=== PATIENT | female | born 1955 | race African-American/Black ===

== ENCOUNTER 2020-01-09 09:35 | Inpatient (IN) | payer MEDICARE, MEDICAID ==
[~2020-01-09] VITALS: Ht 165.1 cm; Wt 69.4 kg
[2020-01-09] MEDS ORDERED: GUAIFENESIN-DM 200MG-20MG/10ML UDC PO ONE (11:15)
[2020-01-09] MEDS ORDERED: SODIUM CHLORIDE 0.9% 1,000 ML IV ONE (11:15)
[2020-01-09 11:45] LABS: BASOPHILS % 0.1 % (0.0-2.0); EOSINOPHILS % 0.2 % (0.0-5.0); HEMOGLOBIN. 11.3 g/dL (12.0-16.0); MEAN CORPUSCULAR HEMOGLOBIN 21.5 pg (28.0-32.0); MEAN CORPUSCULAR VOLUME 66.7 fL (81.0-99.0); MEAN PLATELET VOLUME 8.9 fl (7.4-10.4); MONOCYTES % 7.2 % (2.0-8.0); NEUTROPHILS % 81.5 % (40.0-76.0); PLATELET 393 x1000/uL (130-400); RED BLOOD CELL COUNT 5.24 mill/uL (4.2-5.4); RED CELL DISTRIBUTION WIDTH 19.8 % (11.6-14.6)
[2020-01-09 12:26] LABS: CHLORIDE 90 mEq/L (98-107)
[2020-01-09 12:47] LABS: PLATELET ESTIMATE NORMAL
[2020-01-09] MEDS: SODIUM CHLORIDE 0.9% 1,000 ML IV SCH ×2 (14:20→23:47)
[2020-01-09] MEDS ORDERED: ONDANSETRON HCL 4MG/2ML INJ IV PRN (14:30)
[2020-01-09] MEDS ORDERED: POTASSIUM CHLORIDE 20MEQ TABLET SR PO NR (14:30)
[2020-01-09 14:32] LABS: CLARITY URINE CLEAR (CLEAR); COLOR URINE YELLOW (YELLOW); KETONES URINE 1+ (NEGATIVE); LEUKOCYTE ESTERASE URINE 2+ (NEGATIVE); NITRITE URINE NEGATIVE (NEGATIVE); OCCULT BLOOD URINE NEGATIVE (NEGATIVE); PH URINE 5.5 (4.5-8.0); PROTEIN URINE TRACE (NEGATIVE)
[2020-01-09] MEDS ORDERED: AZITHROMYCIN 500 MG in DEXT 5% WATER 250 ML IV NR (14:45)
[2020-01-09] MEDS ORDERED: IPRATROPIUM/ALBUTEROL 0.5-3(2.5)MG/3ML NEB HHN PRN (17:00)
[2020-01-09] MEDS: ACETAMINOPHEN 325MG TABLET PO PRN (18:44)
[2020-01-09 21:30] VITALS: BP 130/74
[2020-01-09] MEDS: GUAIFENESIN-DM 200MG-20MG/10ML UDC PO PRN (23:46)
[2020-01-09] MEDS: ASCORBIC ACID 500 MG TABLET PO SCH (23:46)
[2020-01-09] MEDS: FLUTICASONE PROPIONATE 50MCG/SPRAY BOTTLE BOTHNSTRLS SCH (23:47)
[2020-01-09] MEDS: HEPARIN 5000 UNITS/ML VIAL SUBCUT SCH (23:48)
[2020-01-10] VITALS: BP 125/65
[2020-01-10] MEDS: HYDROXYCHLOROQUINE SULFATE 200MG TABLET PO SCH ×3 (00:13→23:22)
[2020-01-10 04:00] VITALS: BP 123/66
[2020-01-10] MEDS: GUAIFENESIN-DM 200MG-20MG/10ML UDC PO PRN ×2 (04:02→10:11)
[2020-01-10 08:00] VITALS: BP 122/63
[2020-01-10] MEDS ORDERED: AZITHROMYCIN 250 MG in DEXT 5% WATER 250 ML IV SCH (09:00)
[2020-01-10] MEDS ORDERED: CEFTRIAXONE 1 G PREMIX 50 ML IV SCH (09:00)
[2020-01-10 09:27] LABS: BASOPHILS % 0.6 % (0.0-2.0); EOSINOPHILS % 0.8 % (0.0-5.0); HEMATOCRIT. 27.7 % (36.0-48.0); HEMOGLOBIN. 8.9 g/dL (12.0-16.0); LYMPHOCYTES % 10.7 % (20.0-50.0); MEAN CORPUSCULAR HEMOGLOBIN 21.3 pg (28.0-32.0); MEAN CORPUSCULAR VOLUME 66.2 fL (81.0-99.0); MEAN PLATELET VOLUME 8.1 fl (7.4-10.4); MONOCYTES % 7.2 % (2.0-8.0); NEUTROPHILS % 80.7 % (40.0-76.0); PLATELET 366 x1000/uL (130-400); RED BLOOD CELL COUNT 4.19 mill/uL (4.2-5.4); RED CELL DISTRIBUTION WIDTH 19.6 % (11.6-14.6)
[2020-01-10 09:43] LABS: CHLORIDE 98 mEq/L (98-107)
[2020-01-10] MEDS: ZINC SULFATE 220 MG ( 50 ) CAPSULE PO SCH (10:10)
[2020-01-10] MEDS: ASCORBIC ACID 500 MG TABLET PO SCH ×2 (10:10→23:21)
[2020-01-10] MEDS: HEPARIN 5000 UNITS/ML VIAL SUBCUT SCH ×2 (10:10→23:22)
[2020-01-10 12:00] VITALS: BP 130/77
[2020-01-10] MEDS: BENZONATATE 100MG CAPSULE PO SCH ×2 (14:16→23:21)
[2020-01-10] MEDS: SODIUM CHLORIDE 0.9% 1,000 ML IV SCH (15:20)
[2020-01-10 16:00] VITALS: BP 96/68
[2020-01-10 20:00] VITALS: BP 130/76
[2020-01-10] MEDS: FLUTICASONE PROPIONATE 50MCG/SPRAY BOTTLE BOTHNSTRLS SCH (21:00)
[2020-01-10] MEDS: GUAIFENESIN/DM 600MG/30MG ER TAB 12HR PO PRN (23:32)
[2020-01-11] VITALS (7 sets, daily range): BP systolic 107–146; BP diastolic 63–87
[2020-01-11] MEDS: BENZONATATE 100MG CAPSULE PO SCH ×3 (05:33→21:13)
[2020-01-11] MEDS: FLUTICASONE PROPIONATE 50MCG/SPRAY BOTTLE BOTHNSTRLS SCH ×2 (09:00→21:00)
[2020-01-11] MEDS: AZITHROMYCIN 250 MG TABLET PO SCH (10:55)
[2020-01-11] MEDS: HYDROXYCHLOROQUINE SULFATE 200MG TABLET PO SCH ×2 (10:55→21:13)
[2020-01-11] MEDS: ASCORBIC ACID 500 MG TABLET PO SCH ×2 (10:55→21:13)
[2020-01-11] MEDS: HEPARIN 5000 UNITS/ML VIAL SUBCUT SCH ×2 (10:56→21:00)
[2020-01-11] MEDS: ZINC SULFATE 220 MG ( 50 ) CAPSULE PO SCH (10:56)
[2020-01-11] MEDS: GUAIFENESIN/DM 600MG/30MG ER TAB 12HR PO PRN (11:43)
[2020-01-11] MEDS: CEFTRIAXONE 1 G PREMIX 50 ML IV SCH (11:48)
[2020-01-11 12:10] LABS: EOSINOPHILS % 1.3 % (0.0-5.0); HEMATOCRIT. 26.8 % (36.0-48.0); HEMOGLOBIN. 8.6 g/dL (12.0-16.0); LYMPHOCYTES % 14.5 % (20.0-50.0); MEAN CORPUSCULAR HEMOGLOBIN 21.3 pg (28.0-32.0); MEAN CORPUSCULAR VOLUME 66.7 fL (81.0-99.0); MEAN PLATELET VOLUME 8.9 fl (7.4-10.4); MONOCYTES % 8.9 % (2.0-8.0); NEUTROPHILS % 74.3 % (40.0-76.0); PLATELET 426 x1000/uL (130-400); RED BLOOD CELL COUNT 4.03 mill/uL (4.2-5.4); RED CELL DISTRIBUTION WIDTH 19.6 % (11.6-14.6)
[2020-01-11 12:13] LABS: CHLORIDE 99 mEq/L (98-107)
[2020-01-11] MEDS ORDERED: ONDANSETRON HCL 4MG/2ML INJ IV PRN (12:15)
[2020-01-11] MEDS: GUAIFENESIN-DM 200MG-20MG/10ML UDC PO PRN ×2 (15:07→21:22)
[2020-01-12] VITALS: BP 131/64
[2020-01-12 04:00] VITALS: BP 127/73
[2020-01-12] MEDS: BENZONATATE 100MG CAPSULE PO SCH ×3 (05:32→21:32)
[2020-01-12 08:00] VITALS: BP_SYST 112; BP_SYST 120; BP_DIAS 52; BP_DIAS 68
[2020-01-12] MEDS: HEPARIN 5000 UNITS/ML VIAL SUBCUT SCH ×3 (09:00→21:32)
[2020-01-12] MEDS: FLUTICASONE PROPIONATE 50MCG/SPRAY BOTTLE BOTHNSTRLS SCH (09:00)
[2020-01-12] MEDS: CEFTRIAXONE 1 G PREMIX 50 ML IV SCH (10:24)
[2020-01-12] MEDS: ASCORBIC ACID 500 MG TABLET PO SCH (10:25)
[2020-01-12] MEDS: AZITHROMYCIN 250 MG TABLET PO SCH (10:25)
[2020-01-12] MEDS: HYDROXYCHLOROQUINE SULFATE 200MG TABLET PO SCH (10:25)
[2020-01-12] MEDS: ZINC SULFATE 220 MG ( 50 ) CAPSULE PO SCH (10:25)
[2020-01-12] MEDS: GUAIFENESIN-DM 200MG-20MG/10ML UDC PO PRN ×3 (10:45→22:03)
[2020-01-12] MEDS ORDERED: TUSSL PO (11:06)
[2020-01-12] MEDS ORDERED: BENZ100C86 PO (11:06)
[2020-01-12] MEDS ORDERED: TOPUD PO (11:06)
[2020-01-12] MEDS ORDERED: ASCO500T20 PO (11:06)
[2020-01-12] MEDS ORDERED: HYDR200T35 PO (11:06)
[2020-01-12] MEDS ORDERED: ZINC220C2 PO (11:06)
[2020-01-12] MEDS ORDERED: AZIT250T12 PO (11:06)
[2020-01-12 17:30] VITALS: BP 128/73
[2020-01-12 20:00] VITALS: BP 130/70
[2020-01-12] MEDS: ACETAMINOPHEN 325MG TABLET PO PRN (21:32)
[2020-01-13] VITALS: BP 135/70
[2020-01-13 04:00] VITALS: BP 132/75
[2020-01-13] MEDS: GUAIFENESIN-DM 200MG-20MG/10ML UDC PO PRN ×3 (05:31→16:01)
[2020-01-13] MEDS: BENZONATATE 100MG CAPSULE PO SCH ×3 (05:31→21:18)
[2020-01-13 08:00] VITALS: BP 141/55
[2020-01-13] MEDS: HEPARIN 5000 UNITS/ML VIAL SUBCUT SCH ×3 (09:00→21:19)
[2020-01-13] MEDS: AZITHROMYCIN 250 MG TABLET PO SCH (09:55)
[2020-01-13] MEDS: CEFTRIAXONE 1 G PREMIX 50 ML IV SCH (09:57)
[2020-01-13 12:00] VITALS: BP 136/59
[2020-01-13 16:00] VITALS: BP 124/70
[2020-01-13 20:00] VITALS: BP 137/76
[2020-01-14] VITALS: BP 139/74
[2020-01-14 04:00] VITALS: BP 166/85
[2020-01-14] MEDS: BENZONATATE 100MG CAPSULE PO SCH (06:11)
[2020-01-14 08:00] VITALS: BP 128/79
[2020-01-14] MEDS ORDERED: CEFTRIAXONE 1,000 MG in DEXTROSE 5% WATER 50 ML IV SCH (09:00)
[2020-01-14] MEDS: HEPARIN 5000 UNITS/ML VIAL SUBCUT SCH (09:00)
[2020-01-14] MEDS: GUAIFENESIN-DM 200MG-20MG/10ML UDC PO PRN (09:31)
[2020-01-14] MEDS ORDERED: BENZONATATE 100MG CAPSULE PO PRN (10:45)
[2020-01-14] MEDS ORDERED: METHYLPREDNISOLONE SOD SUCC 40 MG/ML VIAL IV SCH (10:45)
[2020-01-14 12:00] VITALS: BP 134/62
[2020-01-14 13:00] VITALS: BP 134/62
[2020-01-14] MEDS ORDERED: ACETYLCYSTEINE 100MG/ML 10% VIAL 4ML INH SCH (14:00)
[2020-01-14] MEDS ORDERED: IPRATROPIUM/ALBUTEROL 0.5-3(2.5)MG/3ML NEB HHN SCH (14:00)
== END 2020-01-14 15:15 | disposition home or self-care (01) | DRG 871 ==
LOC: ER 09:35 → 7WST 14:12 → EDBEDREQTM 14:18 → EDBEDREQ 14:18 → ENRESERV 19:39 → 5WST 01-12 16:56
PROVIDERS: ADMIT Internal Medicine; ATTEND Internal Medicine
DX: A41.9 Sepsis, unspecified organism (principal); J96.00 Acute respiratory failure, unspecified whether with hypoxia or hypercapnia; E87.1 Hypo-osmolality and hyponatremia; D64.9 Anemia, unspecified; E86.0 Dehydration; E87.6 Hypokalemia; E87.8 Other disorders of electrolyte and fluid balance, not elsewhere classified; I10 Essential (primary) hypertension; J20.9 Acute bronchitis, unspecified; K75.9 Inflammatory liver disease, unspecified; Z60.2 Problems related to living alone; J06.9 Acute upper respiratory infection, unspecified; J00 Acute nasopharyngitis [common cold]; R73.9 Hyperglycemia, unspecified; D72.810 Lymphocytopenia; Z20.828 Contact with and (suspected) exposure to other viral communicable diseases; Z87.891 Personal history of nicotine dependence
CPT/HCPCS: 36415; 71045; 80053; 81003; 82728; 83735; 83880; 84145; 84484; 85025; 85379; 86140; 87635; 87804; 93005; 97161; 99285; J0456; J0696; J1644; J2405; J2920; J7030; J7060

== ENCOUNTER 2020-04-07 08:13 | Emergency (ER) | payer MEDICARE, MEDICAID ==
[~2020-04-07] VITALS: Ht 157.5 cm; Wt 61.0 kg
[~2020-04-07 08:13] MED LIST: AZIT250T12 PO; BENZ100C86 PO; TOPUD PO; TUSSL PO
[2020-04-07] MEDS ORDERED: METOCLOPRAMIDE HCL 10MG/2ML VIAL IV ONE (09:15)
[2020-04-07] MEDS ORDERED: KETOROLAC 30MG/ML VIAL IV ONE (09:15)
[2020-04-07 10:15] VITALS: BP 165/81
== END 2020-04-07 10:21 | disposition home or self-care (01) ==
LOC: ER 08:13
DX: I10 Essential (primary) hypertension (principal); R51 Headache; F17.210 Nicotine dependence, cigarettes, uncomplicated
CPT/HCPCS: 99282; J1885; J2765